=== PATIENT | male | born 1985 | race Caucasian/White ===

== ENCOUNTER 2021-09-23 13:44 | Emergency (ER) | payer OTHER, SELFPAY ==
[2021-09-23 13:49] VITALS: BP 130/90; PULSE 98; RESP 18; TEMP 36.7; O2SAT 96; BMI 25.7
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
--- NOTE | 2021-09-23 13:56 | XR_ITS ---
WS: [id number] Exam: XR foot RT min 3V* [id number] Date/Time of Exam: 09/23/2021 1:58 PM Reason For Exam: injury Findings: The foot was examined in multiple views and reveals no fractures or displacements of bone. No bony a nomalies are noted. The bony elements are in adequate alignment. The joint spaces are smooth and eq uidistant. XR/XR foot RT min 3V* [id number] IMPRESSION: Negative right foot.
[2021-09-23] MEDS: naproxen 500 mg Tablet PO (14:03)
[2021-09-23 14:20] VITALS: BP 126/84; PULSE 92; RESP 16; TEMP 36.7; O2SAT 97
== END 2021-09-23 14:15 | disposition home or self-care (01) ==
LOC: ER 14:23
PROVIDERS: Emergency Provider Emergency Medicine
DX: S90.111A Contusion of right great toe without damage to nail, initial encounter (principal); V89.2XXA Person injured in unspecified motor-vehicle accident, traffic, initial encounter
CPT/HCPCS: 73630; 99282

== ENCOUNTER 2022-05-06 06:13 | Emergency (ER) | payer SELFPAY ==
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
[2022-05-06 06:15] VITALS: PULSE 61; RESP 16; TEMP 36.3; O2SAT 96; BMI 25.0
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
--- NOTE | 2022-05-06 12:14 | DCPLANNER ---
Addendum entered by Joanne Faye 05/18/22 16:37: account general manager received the following message from the ortho clinic regarding follow up appointment: No vm/mailed letter for pt to call back and schedule with Dr. Rosenberg Attempted to call this patient again//no vm available and I mailed another letter. 05.18.22 - showcase maker called phone number [phone] unable to speak with patient and could not leave a voicemail due to no voicemail box set up. account general manager did speak with patients mother and left a message for patient to call showcase maker about a follow up appointment. Original Note: account general manager had message to schedule a follow up appointment for patient with ortho. account general manager sent patients information to the front office staff at ortho. Patients information will be printed and reviewed. Clinic will call patient with appointment information.
--- NOTE | 2022-05-17 09:13 | DCPLANNER ---
Addendum entered by Joanne Faye 05/19/22 11:24: corporate traffic manager received the following message from the ortho clinic regarding appointment information: corporate traffic manager received the following message from the ortho clinic regarding follow up appointment: No vm/mailed letter for pt to call back and schedule with Dr. Rosenberg Attempted to call this patient again//no vm available and I mailed another letter. Original Note: corporate traffic manager had message to schedule a follow up appointment for patient with ortho. corporate traffic manager sent patients information to the front office staff at ortho. Patients information will be printed and reviewed. Clinic will call patient with appointment information.
== END 2022-05-06 07:40 | disposition home or self-care (01) ==
PROVIDERS: Emergency Provider Family Medicine
DX: S93.401A Sprain of unspecified ligament of right ankle, initial encounter (principal); S96.911A Strain of unspecified muscle and tendon at ankle and foot level, right foot, initial encounter; F17.210 Nicotine dependence, cigarettes, uncomplicated; W22.09XA Striking against other stationary object, initial encounter
CPT/HCPCS: 73610; 73630; 99283